=== PATIENT | female | born 1985 | race Hispanic/Latino ===

== ENCOUNTER 2019-10-28 15:00 | Inpatient (IN) | payer BC ==
[~2019-10-28] VITALS: Ht 160 cm; Wt 75.7 kg
[~2019-10-28 15:00] MED LIST: FERR325T22 PO; IBUP-2088 PO
[2019-10-28] MEDS ORDERED: LACTATED RINGERS 1000ML 1,000 ML IV PRN (15:31)
[2019-10-28] MEDS ORDERED: CEFAZOLIN SODIUM 1 GM VIAL ONE (15:42)
[2019-10-28 15:43] LABS: MEAN CORPUSCULAR HEMOGLOBIN 32.4 pg (27.0-33.0); MEAN CORPUSCULAR HGB CONC 33.9 g/dL (32.0-36.0); MEAN CORPUSCULAR VOLUME 95.5 fL (79-99); RED BLOOD CELL COUNT(AUTO) 3.98 MIL/uL (4.00-5.50); RED CELL DISTRIBUTION WIDTH 12.9 % (11.0-15.5); WHITE BLOOD COUNT (AUTO) 12.1 K/uL (4.8-10.8)
[2019-10-28] MEDS ORDERED: PORACTANT ALFA 120 MG/1.5 ML VIAL IH ONE (15:44)
[2019-10-28] MEDS ORDERED: OXYTOCIN-LR 20 UNITS/1000 ML 1,000 ML IV SCH (15:45)
[2019-10-28] MEDS ORDERED: MIDAZOLAM HCL 1 MG/ML 2ML VIAL ONE (15:48)
[2019-10-28] MEDS ORDERED: FENTANYL CITRATE PF 50 MCG/1 ML 5ML AMP IV ONE ×2 (15:48→15:56)
[2019-10-28] MEDS ORDERED: ROPIVACAINE 0.5% 5MG/ML 30ML IJ ONE (16:02)
[2019-10-28 16:31] LABS: APPEARANCE,URINE Clear (CLEAR); BILIRUBIN,URINE Negative (NEGATIVE); COLOR,URINE Yellow (YELLOW); GLUCOSE, URINE (UA) Negative (NEGATIVE); KETONES,URINE 40 mg/dL (NEGATIVE); LEUKOCYTE ESTERASE ,URINE Negative (NEGATIVE); NITRATE,URINE Negative (NEGATIVE); OCCULT BLOOD,URINE Trace (NEGATIVE); PH,URINE 6.5 (5.0-8.0); PROTEIN,URINE Negative (NEGATIVE); UROBILINOGEN,URINE 0.2 mg/dL (0.2-1.0)
[2019-10-28] MEDS ORDERED: CALDOLOR 800MG+NS 250ML 250 ML IV ONE (17:06)
[2019-10-28 17:38] LABS: BACTERIA,URINE Few /HPF (None Seen); SQUAMOUS EPITHELIAL CELL,UR 0-2 /HPF (0-2)
[2019-10-28 17:53] VITALS: BP 104/68
[2019-10-28] MEDS ORDERED: PREN1TAB80 PO (18:20)
[2019-10-28] MEDS ORDERED: LACTATED RINGERS 1000ML 1,000 ML IV SCH (18:35)
[2019-10-28] MEDS ORDERED: MEPERIDINE-PF 75 MG/ML SYG IM PRN (18:45)
[2019-10-28] MEDS ORDERED: OXYTOCIN-LR 20 UNITS/1000 ML 1,000 ML IV PRN (18:45)
[2019-10-28] MEDS ORDERED: PROMETHAZINE HCL 25 MG/ML 1ML AMPULE IM PRN (18:45)
[2019-10-28 19:27] VITALS: BP 105/61
[2019-10-28] MEDS ORDERED: ONDANSETRON HCL 4 MG/2 ML VIAL IVP PRN (19:30)
[2019-10-28] MEDS ORDERED: EPHEDRINE SULFATE 50 MG/ML AMPULE IVP PRN (19:30)
[2019-10-28] MEDS ORDERED: NALOXONE HCL 0.4 MG/1 ML ML IVP PRN ×2 (19:30)
[2019-10-28] MEDS ORDERED: DiphenhydrAMINE HCL 50 MG/ML VIAL IVP PRN (19:30)
[2019-10-28] MEDS ORDERED: MEPERIDINE-PF 25 MG/ML SYG IV PRN (19:30)
[2019-10-28] MEDS ORDERED: MEPERIDINE HCL/PF 25 MG/0.5 ML AMPUL IV PRN (19:30)
[2019-10-28 20:03] LABS: AMPHET/METH SCREEN,URINE NEGATIVE (NEGATIVE); BARBITURATE SCREEN, URINE NEGATIVE (NEGATIVE); BENZODIAZEPINES SCREEN,URINE NEGATIVE (NEGATIVE); CANNABINOID SCREEN,URINE NEGATIVE (NEGATIVE); COCAINE SCREEN,URINE NEGATIVE (NEGATIVE); OPIATE SCREEN,URINE NEGATIVE (NEGATIVE); PHENCYCLIDINE SCREEN,URINE NEGATIVE (NEGATIVE)
[2019-10-28 23:13] VITALS: BP 102/66
[2019-10-28] MEDS: CALDOLOR 800MG+NS 250ML 250 ML IV PRN (23:32)
[2019-10-29 03:26] VITALS: BP 98/56
[2019-10-29] MEDS: CALDOLOR 800MG+NS 250ML 250 ML IV PRN (05:45)
[2019-10-29 06:30] LABS: HEMATOCRIT 32.5 % (36-48); MEAN CORPUSCULAR HEMOGLOBIN 31.9 pg (27.0-33.0); MEAN CORPUSCULAR HGB CONC 33.8 g/dL (32.0-36.0); MEAN CORPUSCULAR VOLUME 94.2 fL (79-99); RED BLOOD CELL COUNT(AUTO) 3.45 MIL/uL (4.00-5.50); RED CELL DISTRIBUTION WIDTH 12.8 % (11.0-15.5); WHITE BLOOD COUNT (AUTO) 12.1 K/uL (4.8-10.8)
--- NOTE | 2019-10-29 06:46 | NUR ---
Lainez Catheter; Lainez Catheter discontinued patient tolerated well. Patient advice to call for help if needed. She verbalizes understanding.
[2019-10-29 07:16] VITALS: BP 99/51
--- NOTE | 2019-10-29 08:00 | NUR ---
DR. DICKERSON ROUNDED AND INFORMED PATIENT THAT SHE COULD BE DISCHARGED THIS AFTERNOON. PATIENT VERBALIZED BEING OKAY WITH BEING DISCHARGED. INFORMED PATIENT OF DISCHARGE POSSIBLY AFTER 1600 VITALS. PATIENT VERBALIZED BEING OKAY WITH PLAN,
[2019-10-29] MEDS ORDERED: BISACODYL 10 MG SUPP.RECT RC PRN (08:45)
[2019-10-29] MEDS ORDERED: IBUPROFEN 600 MG TABLET PO PRN (08:45)
[2019-10-29] MEDS ORDERED: SIMETHICONE 80 MG TAB.CHEW PO PRN (08:45)
[2019-10-29] MEDS ORDERED: LANOLIN 30GM OINTMENT TP PRN (08:45)
[2019-10-29] MEDS ORDERED: DOCUSATE SODIUM 100 MG CAP PO SCH (09:00)
[2019-10-29] MEDS: ACETAMINOPHEN EXTRA STRENGTH 500 MG TABLET PO PRN ×2 (09:29→15:36)
--- NOTE | 2019-10-29 10:27 | NUR ---
EMOTIONAL SUPPORT Sw met with pt who delivered her baby yesterday by emergency c Section at 25weeks gestation. Baby Joshua Winkler was transferred to [facility] after delivery. Mom has 4 teenagers from previous marriage and they are in [place] with their father, and a 3yro son with current . Mom reports father is at [facility] with NB and reports baby is stable at this time. Couple was not prepared for baby at this time but will have time to get needed items since baby may be in hospital till Jan, pt reports. Pt states she will dc today and will have help and support at home. Mom denies need for referral or intervention at this time.
[2019-10-29 11:13] VITALS: BP 101/51
[2019-10-29 14:12] LABS: RAPID PLASMA REAGIN NONREACTIVE (NONREACTIVE)
--- NOTE | 2019-10-29 15:30 | NUR ---
PATIENT WAS GIVEN DISCHARGE INSTRUCTIONS AND VERBALIZED UNDERSTANDING. C/O PAIN AND WAS MEDICATED WITH TYLENOL ES 1000MGS. PATIENT WAS ISSUED A DISPOSABLE GOWN FOR DISCHARGE SINCE PATIENT HAS NO CLOTHES TO GO HOME WITH. INCISION IS OPEN TO AIR WITH STERI STRIPS AND NO REDNESS NOTED OR DRAINAGE. PATIENT REMAINS STABLE.
[2019-10-29 16:14] VITALS: BP 108/56
--- NOTE | 2019-10-29 16:20 | NUR ---
PATIENT WAS TAKEN VIA W/C TO FAMILY VEHICLE AND WAS DISCHARGED TO HER SPOUSE IN STABLE CONDITION. PATIENT VERBALIZED BEING OKAY AFTER GETTING MOTRIN EARLIER AND TYLENOL ES 1000MGS PRIOR TO DISCHARGE.
[2019-10-30 07:15] LABS: HEPATITIS Bs ANTIGEN SCREEN P Negative (Negative)
== END 2019-10-29 16:20 | disposition home or self-care (01) | DRG 786 ==
LOC: EDH 15:00 → LDH 15:08 → OBSVTOIN 15:08 → WSH 17:50
PROVIDERS: ADMIT Obstetrics & Gynecology; ATTEND Obstetrics & Gynecology
PROC: 10D00Z0 Extraction of Products of Conception, High, Open Approach (ICD-10-PCS; principal; 2019-10-28 15:40)
DX: O32.1XX0 Maternal care for breech presentation, not applicable or unspecified (principal); O60.12X0 Preterm labor second trimester with preterm delivery second trimester, not applicable or unspecified; Z3A.24 24 weeks gestation of pregnancy; Z37.0 Single live birth
CPT/HCPCS: 36415; 59510; 76805; 80305; 81001; 85027; 86592; 86701; 86850; 86900; 86901; 87340; 87390; A4344; G0378; J0690; J1741; J2250; J2590; J2795; J3010; J7120

== ENCOUNTER → 2020-08-30 | Outpatient (CLI) | payer BC ==
[~2020-08-30] MED LIST changes: -FERR325T22 PO; -IBUP-2088 PO; +PREN1TAB80 PO
[2020-08-30 12:23] LABS: BASOPHILS % (AUTO) 0.7 % (0.0-5.0); EOSINOPHILS % (AUTO) 0.9 % (0.0-8.0); HEMATOCRIT 39.7 % (36-48); LYMPHOCYTES % (AUTO) 36.2 % (21.0-51.0); MEAN CORPUSCULAR HEMOGLOBIN 31.8 pg (27.0-33.0); MEAN CORPUSCULAR HGB CONC 34.8 g/dL (32.0-36.0); MEAN CORPUSCULAR VOLUME 91.5 fL (79-99); MONOCYTES % (AUTO) 6.6 % (3.0-13.0); NEUTROPHILS % (AUTO) 55.3 % (40.0-77.0); PLATELET COUNT (AUTO) 298 K/uL (130-400); RED BLOOD CELL COUNT(AUTO) 4.34 MIL/uL (4.00-5.50); RED CELL DISTRIBUTION WIDTH 12.7 % (11.0-15.5); WHITE BLOOD COUNT (AUTO) 7.6 K/uL (4.8-10.8)
[2020-08-30 12:43] LABS: CREATININE 0.7 mg/dL (0.5-1.5); POTASSIUM 4.3 mmol/L (3.5-5.1)
== END | disposition home or self-care (01) ==
LOC: LAB 11:43
PROVIDERS: ATTEND Urology
DX: N36.1 Urethral diverticulum (principal); R31.29 Other microscopic hematuria
CPT/HCPCS: 36415; 80048; 85025

== ENCOUNTER → 2020-09-06 | Outpatient (CLI) | payer BC ==
[~2020-09-06] MED LIST changes: +IOHEXOL-350 75 ML VIAL IV ONE
== END | disposition home or self-care (01) ==
LOC: RAH 07:35
PROVIDERS: ATTEND Urology
DX: R31.29 Other microscopic hematuria (principal)
CPT/HCPCS: 74178; Q9967

== ENCOUNTER → 2020-09-18 | Outpatient (CLI) | payer BC ==
[~2020-09-18] MED LIST changes: +GADOTERATE MEGLUMINE 10 MMOL/20 ML VIAL IV ONE; -IOHEXOL-350 75 ML VIAL IV ONE
== END | disposition home or self-care (01) ==
LOC: RAH 09:03
PROVIDERS: ATTEND Urology
DX: N83.02 Follicular cyst of left ovary (principal); N83.01 Follicular cyst of right ovary; N36.1 Urethral diverticulum
CPT/HCPCS: 72197; A9575